=== PATIENT | male | born 1950 | race Caucasian/White ===

== ENCOUNTER 2017-06-13 02:26 | Emergency (ER) | payer MEDICARE, OTHER ==
[~2017-06-13] VITALS: Ht 193 cm; Wt 111.0 kg
[2017-06-13] VITALS (7 sets, daily range): BP systolic 155–201; BP diastolic 89–114; PULSE 83–103; RESP 16–20; TEMP 99; O2SAT 94–97
[~2017-06-13 02:26] MED LIST: BACT800T5 PO; IBUP800T23 PO; METR-1 PO; TRAM50TA PO
[2017-06-13 03:46] LABS: BLOOD, URINE NEG (NEG); GLUCOSE,URINE 1000 OR GREATER mg/dL (NEG); KETONE, URINE NEG (NEG); NITRITE,URINE NEG (NEG)
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
[2017-06-13] MEDS ORDERED: SODIUM CHLORIDE 0.9% FLUSH 10 ML FLUSH IV FLUSH PRN (04:00)
[2017-06-13] MEDS ORDERED: ONDANSETRON HCL 4 MG/2 ML VIAL IVP ONE (04:00)
[2017-06-13 04:09] LABS: SQUAMOUS EPITHELIAL CELL URINE 0-5 /hpf (0-5); URINE COLOR YELLOW (YELLW/STRAW)
[2017-06-13 04:10] LABS: COMMENT (UR) CULT NOT INDICATED; CULTURE IF INDICATED CULT NOT INDICATED
[2017-06-13 04:11] LABS: RBC, URINE 0-3 /hpf (0-3)
[2017-06-13 04:26] LABS: AUTOMATED NEUTROPHIL # 5.7 TH/MM3 (1.8-7.7); BASOPHIL # 0.1 TH/MM3 (0-0.2); BASOPHIL % 0.6 % (0.0-2.0); EOSINOPHIL # 0.7 TH/MM3 (0-0.4); HEMATOCRIT 49.3 % (39.0-51.0); HEMO FLAGS DIFF FINAL; LYMPH % 34.6 % (9.0-44.0); LYMPHOCYTE # 3.9 TH/MM3 (1.0-4.8); MEAN CELL VOLUME 81.1 FL (80.0-100.0); MEAN CORPUSCULAR HEMOGLOBIN 27.7 PG (27.0-34.0); MEAN CORPUSCULAR HGB CONC 34.1 % (32.0-36.0); MONO % 7.2 % (0.0-8.0); NEUT % 51.6 % (16.0-70.0); PLATELET COUNT 268 TH/MM3 (150-450); RED BLOOD COUNT 6.08 MIL/MM3 (4.50-5.90); RED CELL DISTRIBUTION WIDTH 12.4 % (11.6-17.2); WHITE BLOOD COUNT 11.2 TH/MM3 (4.0-11.0)
[2017-06-13] MEDS ORDERED: cloNIDine HCL 0.1 MG TAB PO ONE (04:30)
[2017-06-13] MEDS ORDERED: KETOROLAC TROMETHAMINE 30 MG/ML (IVP) VIAL IV PUSH ONE (04:30)
[2017-06-13 04:34] LABS: CHLORIDE 103 MEQ/L (98-107); POTASSIUM 4.7 MEQ/L (3.5-5.1); SODIUM (NA) 137 MEQ/L (136-145)
[2017-06-13 04:38] LABS: ANION GAP 7 MEQ/L (5-15); BICARBONATE 26.8 MEQ/L (21.0-32.0); BLOOD UREA NITROGEN 24 MG/DL (7-18)
[2017-06-13 04:41] LABS: ALT (GPT) 48 U/L (12-78); AST (GOT) 22 U/L (15-37); GLOMERULAR FILTRATION RATE 61 ML/MIN (>89)
[2017-06-13 04:42] LABS: TOTAL BILIRUBIN ADULT 0.3 MG/DL (0.2-1.0)
[2017-06-13 04:44] LABS: ALKALINE PHOSPHATASE 102 U/L (45-117)
--- NOTE | 2017-06-13 04:59 | RADRPT ---
EXAM DATE/TIME: 06/13/2017 03:51 [facility] COMPARISON: CHEST SINGLE AP, November 24, 2014, 3:51. INDICATIONS : Shortness of breath. MEDICAL HISTORY : Chronic obstructive pulmonary disease. Asthma. SURGICAL HISTORY : None. ENCOUNTER: Initial ACUITY: 1 day PAIN SCORE: 0/10 LOCATION: Bilateral chest FINDINGS: A single view of the chest demonstrates the lungs to be symmetrically aerated without evidence of mas s, infiltrate or effusion. The cardiomediastinal contours are unremarkable. Osseous structures are intact. CONCLUSION: 1. No active disease. Mild hyperinflation. Shady Benitez MD on June 13, 2017 at 4:57 Board Certified Radiologist. This report was verified electronically.
[2017-06-13] MEDS ORDERED: IOHEXOL 350 MG/ML 10 ML VIAL (for RAD DIAG) IVCONTRAST ONE (06:00)
--- NOTE | 2017-06-13 06:44 | RADRPT ---
EXAM DATE/TIME: 06/13/2017 06:03 [facility] COMPARISON: No previous studies available for comparison. INDICATIONS : Bilateral abdominal pain anterior and posterior. IV CONTRAST: 100 cc Omnipaque 350 (iohexol) IV ORAL CONTRAST: No oral contrast ingested. RADIATION DOSE: 20.55 CTDIvol (mGy) MEDICAL HISTORY : Chronic obstructive pulmonary disease. SURGICAL HISTORY : None. ENCOUNTER: Initial ACUITY: 2 weeks PAIN SCALE: 2/10 LOCATION: Bilateral abdomen. Anterior and posterior. TECHNIQUE: Volumetric scanning of the abdomen and pelvis was performed. Using automated exposure control and ad justment of the mA and/or kV according to patient size, radiation dose was kept as low as reasonably achievable to obtain optimal diagnostic quality images. DICOM format image data is available electro nically for review and comparison. FINDINGS: Lung bases are clear. Diffuse fatty infiltration of the liver noted. Spleen, adrenals, kidneys and pa ncreas demonstrate no acute findings. No gallstones or biliary ductal dilatation. No free fluid or free air. No bowel obstruction. No adenopathy. CONCLUSION: 1. No acute findings on abdomen and pelvic CT. Diffuse fatty liver. Shady Benitez MD on June 13, 2017 at 6:41 Board Certified Radiologist. This report was verified electronically.
[2017-06-13] MEDS ORDERED: AMLO5 PO (06:50)
[2017-06-13] MEDS ORDERED: METF500T PO (06:50)
[2017-06-13] MEDS ORDERED: CLON0.1T PO (06:50)
--- NOTE | 2017-06-13 07:46 | EKG ---
Date Performed: 06/13/2017 Time Performed: 04:05:08 PTAGE: 66 years EKG: Sinus rhythm POSSIBLE INFERIOR MYOCARDIAL INFARCTION LEFT AXIS DEVIATION BORDERLINE POOR R WAVE PROGRESSION ABNOR MAL ECG PREVIOUS TRACING : 11/24/2014 03.45 No significant change from previous tracing noted. DOCTOR: Vladimir Paez Interpretating Date/Time 06/13/2017 07:43:59
== END 2017-06-13 07:09 | disposition home or self-care (01) ==
LOC: PHED 02:26
DX: I10 Essential (primary) hypertension (principal); R73.9 Hyperglycemia, unspecified; J44.9 Chronic obstructive pulmonary disease, unspecified; Z87.891 Personal history of nicotine dependence
CPT/HCPCS: 71010; 74177; 80053; 81001; 85025; 93005; 96374; 96375; 99285; J1885; J2405; Q9967

== ENCOUNTER 2017-10-18 11:24 | Inpatient (IN) | payer MEDICARE, OTHER ==
[~2017-10-18] VITALS: Ht 195.6 cm; Wt 108.6 kg
[2017-10-18] VITALS (10 sets, daily range): BP systolic 147–234; BP diastolic 93–153; PULSE 82–106; RESP 14–20; TEMP 96.1–99.1; O2SAT 93–100
[~2017-10-18 11:24] MED LIST changes: +AMLO5 PO; -BACT800T5 PO; +CLON0.1T PO; -IBUP800T23 PO; +METF500T PO; -METR-1 PO; -TRAM50TA PO
[2017-10-18 12:23] LABS: BILIRUBIN, URINE NEG (NEG); BLOOD, URINE SMALL (NEG); GLUCOSE,URINE 500 mg/dL (NEG); KETONE, URINE NEG (NEG); NITRITE,URINE NEG (NEG); URINE LEUKOCYTE ESTERASE NEG (NEG)
[2017-10-18 12:24] LABS: URINE COLOR STRAW (YELLW/STRAW)
[2017-10-18 12:26] LABS: SQUAMOUS EPITHELIAL CELL URINE 0-5 /hpf (0-5); WBC, URINE 0-2 /hpf (0-5)
[2017-10-18] MEDS ORDERED: METOPROLOL TARTRATE 25 MG TAB PO ONE (12:30)
[2017-10-18] MEDS ORDERED: SODIUM CHLORIDE 0.9% FLUSH 10 ML FLUSH IV FLUSH PRN ×2 (12:30→14:15)
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
[2017-10-18 12:49] LABS: AUTOMATED NEUTROPHIL # 8.7 TH/MM3 (1.8-7.7); BASOPHIL # 0.5 TH/MM3 (0-0.2); BASOPHIL % 3.9 % (0.0-2.0); EOSINOPHIL # 0.2 TH/MM3 (0-0.4); EOSINOPHIL % 1.1 % (0.0-4.0); HEMATOCRIT 45.2 % (39.0-51.0); HEMOGLOBIN 15.1 GM/DL (13.0-17.0); LYMPH % 22.5 % (9.0-44.0); LYMPHOCYTE # 3.1 TH/MM3 (1.0-4.8); MEAN CELL VOLUME 82.2 FL (80.0-100.0); MEAN CORPUSCULAR HEMOGLOBIN 27.5 PG (27.0-34.0); MEAN CORPUSCULAR HGB CONC 33.5 % (32.0-36.0); MEAN PLATELET VOLUME 6.9 FL (7.0-11.0); MONO % 9.2 % (0.0-8.0); MONOCYTE # 1.3 TH/MM3 (0-0.9); NEUT % 63.3 % (16.0-70.0); PLATELET COUNT 323 TH/MM3 (150-450); RED CELL DISTRIBUTION WIDTH 11.9 % (11.6-17.2); WHITE BLOOD COUNT 13.8 TH/MM3 (4.0-11.0)
[2017-10-18 12:59] LABS: CHLORIDE 105 MEQ/L (98-107); SODIUM (NA) 138 MEQ/L (136-145)
[2017-10-18 13:03] LABS: ALBUMIN 3.3 GM/DL (3.4-5.0); BICARBONATE 22.9 MEQ/L (21.0-32.0); BLOOD UREA NITROGEN 47 MG/DL (7-18); CALCIUM 8.9 MG/DL (8.5-10.1); GLUCOSE,RANDOM 270 MG/DL (74-106); LIPASE 258 U/L (73-393)
[2017-10-18 13:06] LABS: ALT (GPT) 43 U/L (12-78); AST (GOT) 28 U/L (15-37); GLOMERULAR FILTRATION RATE 17 ML/MIN (>89)
[2017-10-18 13:08] LABS: TOTAL BILIRUBIN ADULT 0.4 MG/DL (0.2-1.0); TOTAL PROTEIN 8.1 GM/DL (6.4-8.2)
[2017-10-18 13:09] LABS: ALKALINE PHOSPHATASE 86 U/L (45-117)
[2017-10-18 13:11] LABS: TROPONIN I 0.02 NG/ML (0.02-0.05)
--- NOTE | 2017-10-18 13:37 | RADRPT ---
EXAM DATE/TIME: 10/18/2017 12:30 [facility] COMPARISON: No previous studies available for comparison. INDICATIONS : Abdominal pain and problems urinating for 3 months. MEDICAL HISTORY : Chronic obstructive pulmonary disease. SURGICAL HISTORY : None. ENCOUNTER: Initial ACUITY: 3 months PAIN SCORE: 10/10 LOCATION: abdominal FINDINGS: Lung base is are clear. Bowel gas pattern unremarkable. No free air or obstruction. Degenerative c hanges lower lumbar spine. CONCLUSION: Degenerative changes lower lumbar spine otherwise negative. Fly Stockton MD FACR on October 18, 2017 at 13:35 Board Certified Radiologist. This report was verified electronically.
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
[2017-10-18] MEDS ORDERED: GLUCAGON 1 MG/ML VIAL OTHER PRN (14:15)
[2017-10-18] MEDS ORDERED: ONDANSETRON HCL 4 MG/2 ML VIAL IVP PRN (14:15)
[2017-10-18] MEDS ORDERED: ACETAMINOPHEN 325 MG TAB PO PRN (14:15)
[2017-10-18] MEDS ORDERED: NALOXONE HCL 0.4 MG/ML AMP IV PUSH PRN (14:15)
[2017-10-18] MEDS ORDERED: TEMAZEPAM 15 MG CAP PO PRN (14:15)
[2017-10-18] MEDS ORDERED: LACTULOSE SYRUP 20 GM/30 ML CUP PO PRN (14:15)
[2017-10-18] MEDS ORDERED: SENNOSIDES 8.6 MG TAB PO PRN (14:15)
[2017-10-18] MEDS ORDERED: DEXTROSE 50% IN WATER 50 ML VIAL(D50) IV PUSH PRN (14:15)
[2017-10-18] MEDS ORDERED: PROCHLORPERAZINE 25 MG SUPP RECTAL PRN (14:15)
[2017-10-18] MEDS ORDERED: BISACODYL 10 MG SUPP RECTAL PRN (14:15)
[2017-10-18] MEDS ORDERED: MAGNESIUM HYDROXIDE SUSP 30 ML CUP PO PRN (14:15)
[2017-10-18] MEDS ORDERED: TAMSULOSIN HCL 0.4 MG CAP PO ONE (14:30)
[2017-10-18] MEDS: hydrALAZINE HCL 10 MG TAB PO PRN ×2 (14:37→20:44)
[2017-10-18] MEDS: ENOXAPARIN SODIUM 30 MG/0.3 ML SYRINGE SQ SCH (14:37)
[2017-10-18] MEDS: SODIUM CHLOR 0.9% 1000 ML INJ 1,000 ML IV SCH (14:37)
--- NOTE | 2017-10-18 17:29 | EKG ---
Date Performed: 10/18/2017 Time Performed: 12:56:14 PTAGE: 67 years EKG: SINUS TACHYCARDIA POSSIBLE LEFT ATRIAL ENLARGEMENT INFERIOR MYOCARDIAL INFARCTION ABNORMAL ECG Compared to PREVIOUS TRACING , the patient is now tachycardic. PREVIOUS TRACIN06/13/2017 04.05 DOCTOR: Natali Howard Interpretating Date/Time 10/18/2017 17:28:10
[2017-10-18] MEDS: INSULIN ASPART SUPPLEMENTAL SCALE SQ SCH ×2 (17:45→21:45)
[2017-10-18] MEDS: METOPROLOL TARTRATE 50 MG TAB PO SCH (20:44)
[2017-10-18] MEDS: DOCUSATE SODIUM 50 MG/SENNA 8.6 MG TAB PO SCH (20:44)
[2017-10-18] MEDS: METOPROLOL TARTRATE 5 MG/5 ML VIAL IV PUSH PRN (20:45)
[2017-10-18] MEDS: SODIUM CHLORIDE 0.9% FLUSH 10 ML FLUSH IV FLUSH SCH (20:45)
[2017-10-19] VITALS (10 sets, daily range): BP systolic 150–198; BP diastolic 78–114; PULSE 77–124; RESP 18–20; TEMP 97.7–99; O2SAT 92–96
[2017-10-19] MEDS: SODIUM CHLOR 0.9% 1000 ML INJ 1,000 ML IV SCH ×3 (01:26→20:44)
[2017-10-19] MEDS: hydrALAZINE HCL 10 MG TAB PO PRN ×3 (04:33→20:44)
[2017-10-19 06:20] LABS: CHLORIDE 107 MEQ/L (98-107); SODIUM (NA) 143 MEQ/L (136-145)
[2017-10-19 06:25] LABS: ALBUMIN 2.8 GM/DL (3.4-5.0)
[2017-10-19 06:26] LABS: BICARBONATE 28.6 MEQ/L (21.0-32.0); CALCIUM 8.3 MG/DL (8.5-10.1); GLUCOSE,RANDOM 171 MG/DL (74-106)
[2017-10-19 06:41] LABS: ALKALINE PHOSPHATASE 70 U/L (45-117); ALT (GPT) 45 U/L (12-78); AST (GOT) 25 U/L (15-37); BLOOD UREA NITROGEN 34 MG/DL (7-18); GLOMERULAR FILTRATION RATE 32 ML/MIN (>89); TOTAL BILIRUBIN ADULT 0.4 MG/DL (0.2-1.0)
[2017-10-19] MEDS: METOPROLOL TARTRATE 50 MG TAB PO SCH ×2 (08:42→20:44)
[2017-10-19] MEDS: DOCUSATE SODIUM 50 MG/SENNA 8.6 MG TAB PO SCH ×2 (08:42→20:44)
[2017-10-19] MEDS: INSULIN ASPART SUPPLEMENTAL SCALE SQ SCH ×4 (08:42→20:53)
[2017-10-19] MEDS: amLODIPine BESYLATE 5 MG TAB PO SCH (08:43)
[2017-10-19] MEDS: TAMSULOSIN HCL 0.4 MG CAP PO SCH (08:43)
[2017-10-19] MEDS: SODIUM CHLORIDE 0.9% FLUSH 10 ML FLUSH IV FLUSH SCH ×2 (08:46→20:44)
--- NOTE | 2017-10-19 08:53 | HHI.PR ---
Subjective Remarks Feels improving. No chest pain or sob. Urine is orange in color, no blood in it. Abd pain is controlled. No n/v/d/c. Objective Vitals Vital Signs Date Time Temp Pulse Resp B/P (MAP) Pulse Ox O2 Delivery O2 Flow Rate FiO2 10/19/17 08:00 99.0 124 20 182/78 (112) 95 10/19/17 04:00 97.7 81 20 156/104 (121) 94 Automatic Cuff 10/19/17 00:00 97.7 77 20 158/101 (120) 94 Manual Cuff/Auscultation 10/18/17 20:00 97.6 95 20 180/110 (133) 94 Automatic Cuff 10/18/17 19:15 94 21 10/18/17 18:00 96.1 105 14 147/93 (111) 93 10/18/17 15:59 10/18/17 15:34 82 20 183/100 (127) 94 10/18/17 15:02 95 21 10/18/17 14:35 85 16 193/112 (139) 100 10/18/17 14:12 88 20 203/122 (149) 98 10/18/17 13:23 94 18 224/124 (157) 94 10/18/17 12:47 88 18 234/153 (180) 96 10/18/17 12:47 98 10/18/17 11:39 99.1 106 16 229/130 (163) 96 I/O 10/18/17 10/18/17 10/18/17 10/19/17 10/19/17 10/19/17 07:00 15:00 23:00 07:00 15:00 23:00 Intake Total 880 ml 3504 ml Output Total 2500 ml 3200 ml 3050 ml Balance -2500 ml -2320 ml 454 ml Intake Oral 880 ml 1920 ml IV Total 1584 ml Output Urine Total 2500 ml 3200 ml 3050 ml # Bowel Movements 0 Result Diagram: 10/18/17 1240 10/19/17 0435 Imaging Last Impressions Abdomen X-Ray 10/18/17 0000 Signed Impressions: Service Date/Time: Wednesday, October 18, 2017 12:30 - CONCLUSION: Degenerative changes lower lumbar spine otherwise negative. Fly Stockton MD FACR Objective Remarks GENERAL: This is a well-nourished, well-developed patient, in no apparent distress. CARDIOVASCULAR: Regular rate and rhythm without murmurs, gallops, or rubs. RESPIRATORY: Clear to auscultation. Breath sounds equal bilaterally. No wheezes , rales, or rhonchi. GASTROINTESTINAL: Abdomen soft, non-tender, nondistended. No hepato-splenomegaly , or palpable masses. No guarding. MUSCULOSKELETAL: Extremities without clubbing, cyanosis, or edema. No joint tenderness, effusion, or edema noted. No calf tenderness. Negative Homans sign bilaterally. NEUROLOGICAL: Awake and alert. Cranial nerves II through XII intact. Motor and sensory grossly within normal limits. Five out of 5 muscle strength in all muscle groups. Normal speech. A/P Assessment and Plan Hypertension Diabetes mellitus Urinary retention RODOLFO Dehydration Hematuria Hypertension emergency Noncompliance with medications and follow-up Give one dose of IV labetalol in the emergency room Start metoprolol 50 mg twice a day, Start gentle IV fluids monitor kidney function. Kidney function improving. Continue Hall for now monitor urine output. Avoid nephrotoxins. Start Flomax Start amlodipine 5 mg by mouth daily Hydralazine when necessary 10 mg need for systolic blood pressure more than 160 Monitor closely vital signs Insulin sliding scale, Accu-Cheks A1c pending Laxatives, antiemetics as need Consult urology DVT prophylaxis SCD/teds/Lovenox per renal dose Discussed Condition With Patient, nurse DC when improves kidney function at baseline Azalia Burgess MD Oct 19, 2017 08:53
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
[2017-10-19] MEDS ORDERED: INFLUENZA VIRUS VACCINE (QUADRIVALENT) 0.5 ML SYR IM ONE (10:00)
[2017-10-19] MEDS ORDERED: PNEUMOCOCCAL POLYVALENT INJ 25 MCG/0.5 ML SYR IM ONE (10:00)
[2017-10-19] MEDS: ENOXAPARIN SODIUM 30 MG/0.3 ML SYRINGE SQ SCH (14:28)
[2017-10-19] MEDS: METOPROLOL TARTRATE 5 MG/5 ML VIAL IV PUSH PRN (17:17)
[2017-10-20] VITALS (9 sets, daily range): BP systolic 146–180; BP diastolic 88–101; PULSE 77–100; RESP 18–20; TEMP 97.5–98.5; O2SAT 92–95
[2017-10-20] MEDS: hydrALAZINE HCL 10 MG TAB PO PRN (02:48)
[2017-10-20 05:35] LABS: AUTOMATED NEUTROPHIL # 9.3 TH/MM3 (1.8-7.7); BASOPHIL # 0.1 TH/MM3 (0-0.2); BASOPHIL % 0.4 % (0.0-2.0); EOSINOPHIL # 0.6 TH/MM3 (0-0.4); EOSINOPHIL % 4.6 % (0.0-4.0); HEMATOCRIT 45.2 % (39.0-51.0); HEMOGLOBIN 14.6 GM/DL (13.0-17.0); LYMPH % 18.8 % (9.0-44.0); LYMPHOCYTE # 2.5 TH/MM3 (1.0-4.8); MEAN CELL VOLUME 82.9 FL (80.0-100.0); MEAN CORPUSCULAR HEMOGLOBIN 26.8 PG (27.0-34.0); MEAN CORPUSCULAR HGB CONC 32.3 % (32.0-36.0); MEAN PLATELET VOLUME 7.7 FL (7.0-11.0); MONO % 6.3 % (0.0-8.0); MONOCYTE # 0.8 TH/MM3 (0-0.9); NEUT % 69.9 % (16.0-70.0); PLATELET COUNT 327 TH/MM3 (150-450); RED BLOOD COUNT 5.45 MIL/MM3 (4.50-5.90); RED CELL DISTRIBUTION WIDTH 12.3 % (11.6-17.2); WHITE BLOOD COUNT 13.3 TH/MM3 (4.0-11.0)
[2017-10-20 05:53] LABS: CALCIUM 7.9 MG/DL (8.5-10.1)
[2017-10-20 05:54] LABS: BICARBONATE 28.2 MEQ/L (21.0-32.0)
[2017-10-20] MEDS: SODIUM CHLOR 0.9% 1000 ML INJ 1,000 ML IV SCH ×2 (05:54→15:46)
[2017-10-20 05:57] LABS: CREATININE 1.5 MG/DL (0.60-1.30)
[2017-10-20] MEDS: INSULIN ASPART SUPPLEMENTAL SCALE SQ SCH ×4 (08:13→20:11)
[2017-10-20] MEDS: METOPROLOL TARTRATE 50 MG TAB PO SCH ×2 (08:13→20:11)
[2017-10-20] MEDS: amLODIPine BESYLATE 5 MG TAB PO SCH (08:13)
[2017-10-20] MEDS: DOCUSATE SODIUM 50 MG/SENNA 8.6 MG TAB PO SCH ×2 (08:13→20:11)
[2017-10-20] MEDS: TAMSULOSIN HCL 0.4 MG CAP PO SCH (08:13)
[2017-10-20] MEDS: SODIUM CHLORIDE 0.9% FLUSH 10 ML FLUSH IV FLUSH SCH ×3 (08:14→20:16)
--- NOTE | 2017-10-20 08:17 | HHI.PR ---
Subjective Remarks In the chair, no n/v/d/c. Denies chest pain or sob. Feels tired. Hall with pinkish urine. no abd pain . no fever ro chills. Objective Vitals Vital Signs Date Time Temp Pulse Resp B/P (MAP) Pulse Ox O2 Delivery O2 Flow Rate FiO2 10/20/17 08:02 95 21 10/20/17 04:17 89 146/96 (113) 10/20/17 02:45 88 170/101 (124) 10/20/17 00:00 98.0 78 18 169/89 (115) 93 10/19/17 20:00 97.7 84 19 175/95 (121) 92 10/19/17 19:54 93 21 10/19/17 18:00 97.8 85 20 150/92 (111) 95 10/19/17 17:14 94 198/114 (142) 10/19/17 16:00 98.5 88 18 175/87 (116) 94 10/19/17 12:00 98.7 79 20 174/88 (116) 94 10/19/17 11:24 96 I/O 10/19/17 10/19/17 10/19/17 10/20/17 10/20/17 10/20/17 07:00 15:00 23:00 07:00 15:00 23:00 Intake Total 3504 ml 318 ml 1459 ml 1112 ml Output Total 3050 ml 1000 ml 3800 ml Balance 454 ml 318 ml 459 ml -2688 ml Intake Oral 1920 ml 750 ml IV Total 1584 ml 318 ml 709 ml 1112 ml Output Urine Total 3050 ml 1000 ml 3800 ml # Bowel Movements 0 Result Diagram: 10/20/17 0425 10/20/17 0425 Objective Remarks GENERAL: This is a well-nourished, well-developed patient, in no apparent distress. CARDIOVASCULAR: Regular rate and rhythm without murmurs, gallops, or rubs. RESPIRATORY: Clear to auscultation. Breath sounds equal bilaterally. No wheezes , rales, or rhonchi. GASTROINTESTINAL: Abdomen soft, non-tender, nondistended. No hepato-splenomegaly , or palpable masses. No guarding. MUSCULOSKELETAL: Extremities without clubbing, cyanosis, or edema. No joint tenderness, effusion, or edema noted. No calf tenderness. Negative Homans sign bilaterally. NEUROLOGICAL: Awake and alert. Cranial nerves II through XII intact. Motor and sensory grossly within normal limits. Five out of 5 muscle strength in all muscle groups. Normal speech. A/P Assessment and Plan Hypertension Diabetes mellitus Urinary retention RODOLFO Dehydration Hematuria Hypertension emergency Noncompliance with medications and follow-up Give one dose of IV labetalol in the emergency room Start metoprolol 50 mg twice a day, Start gentle IV fluids monitor kidney function. Kidney function improving. Continue Hall for now monitor urine output. Avoid nephrotoxins. Start Flomax Start amlodipine 5 mg by mouth daily Hydralazine when necessary 10 mg need for systolic blood pressure more than 160 Monitor closely vital signs Insulin sliding scale, Accu-Cheks A1c pending Laxatives, antiemetics as need Consult urology DVT prophylaxis SCD/teds/Lovenox per renal dose Discussed Condition With Patient, nurse DC when improves kidney function at baseline Azalia Burgess MD Oct 20, 2017 08:17
[2017-10-20] MEDS: ENOXAPARIN SODIUM 30 MG/0.3 ML SYRINGE SQ SCH (15:45)
[2017-10-21] VITALS: BP 175/95; PULSE 80; RESP 18; TEMP 97.6; O2SAT 95
[2017-10-21] MEDS: hydrALAZINE HCL 10 MG TAB PO PRN (01:10)
[2017-10-21] MEDS: SODIUM CHLOR 0.9% 1000 ML INJ 1,000 ML IV SCH ×2 (01:11→11:15)
[2017-10-21 04:00] VITALS: BP 184/97
[2017-10-21] MEDS: METOPROLOL TARTRATE 5 MG/5 ML VIAL IV PUSH PRN (05:21)
[2017-10-21 08:00] VITALS: BP 186/92; PULSE 93; RESP 20; TEMP 97.8; O2SAT 94
[2017-10-21] MEDS: INSULIN ASPART SUPPLEMENTAL SCALE SQ SCH ×2 (08:36→13:15)
[2017-10-21] MEDS: METOPROLOL TARTRATE 50 MG TAB PO SCH (08:38)
[2017-10-21] MEDS: amLODIPine BESYLATE 5 MG TAB PO SCH (08:38)
[2017-10-21] MEDS: DOCUSATE SODIUM 50 MG/SENNA 8.6 MG TAB PO SCH (08:38)
[2017-10-21] MEDS: TAMSULOSIN HCL 0.4 MG CAP PO SCH (08:38)
[2017-10-21] MEDS: SODIUM CHLORIDE 0.9% FLUSH 10 ML FLUSH IV FLUSH SCH (08:39)
[2017-10-21 09:32] LABS: AUTOMATED NEUTROPHIL # 9.5 TH/MM3 (1.8-7.7); BASOPHIL # 0.1 TH/MM3 (0-0.2); BASOPHIL % 0.6 % (0.0-2.0); EOSINOPHIL # 0.8 TH/MM3 (0-0.4); EOSINOPHIL % 5.8 % (0.0-4.0); HEMATOCRIT 45.2 % (39.0-51.0); HEMOGLOBIN 14.7 GM/DL (13.0-17.0); LYMPH % 19.3 % (9.0-44.0); LYMPHOCYTE # 2.7 TH/MM3 (1.0-4.8); MEAN CELL VOLUME 81.9 FL (80.0-100.0); MEAN CORPUSCULAR HEMOGLOBIN 26.6 PG (27.0-34.0); MEAN CORPUSCULAR HGB CONC 32.4 % (32.0-36.0); MEAN PLATELET VOLUME 7.5 FL (7.0-11.0); MONO % 6.6 % (0.0-8.0); MONOCYTE # 0.9 TH/MM3 (0-0.9); NEUT % 67.7 % (16.0-70.0); PLATELET COUNT 374 TH/MM3 (150-450); RED BLOOD COUNT 5.52 MIL/MM3 (4.50-5.90); RED CELL DISTRIBUTION WIDTH 12.1 % (11.6-17.2)
[2017-10-21 09:56] LABS: CALCIUM 8.4 MG/DL (8.5-10.1)
[2017-10-21 09:57] LABS: BICARBONATE 28.8 MEQ/L (21.0-32.0); GLUCOSE,RANDOM 274 MG/DL (74-106)
[2017-10-21 10:01] LABS: GLOMERULAR FILTRATION RATE 51 ML/MIN (>89)
[2017-10-21 10:03] LABS: CHLORIDE 104 MEQ/L (98-107); SODIUM (NA) 140 MEQ/L (136-145)
[2017-10-21 10:05] LABS: BLOOD UREA NITROGEN 19 MG/DL (7-18)
--- NOTE | 2017-10-21 10:06 | HHI.PR ---
Subjective Remarks Feels better urine is clearing up. no fever or chills.No n/v/d/c. no abd pain. Wants to go home Objective Vitals Vital Signs Date Time Temp Pulse Resp B/P (MAP) Pulse Ox O2 Delivery O2 Flow Rate FiO2 10/21/17 08:00 94 21 10/21/17 08:00 97.8 93 20 186/92 (123) 94 10/21/17 04:00 184/97 (126) 10/21/17 00:00 97.6 80 18 175/95 (121) 95 10/20/17 22:45 95 21 10/20/17 20:00 97.5 100 20 180/89 (119) 92 10/20/17 15:50 97.7 91 20 150/88 (108) 93 10/20/17 11:30 98.5 77 20 159/89 (112) 93 I/O 10/20/17 10/20/17 10/20/17 10/21/17 10/21/17 10/21/17 07:00 15:00 23:00 07:00 15:00 23:00 Intake Total 1112 ml 1000 ml 1776 ml Output Total 3800 ml 2300 ml 2400 ml Balance -2688 ml -1300 ml -624 ml Intake Oral 800 ml 860 ml IV Total 1112 ml 200 ml 916 ml Output Urine Total 3800 ml 2300 ml 2400 ml # Bowel Movements 0 0 Result Diagram: 10/21/17 0915 10/21/17 0915 Imaging Last Impressions Chest X-Ray 10/21/17 0000 Signed Impressions: Service Date/Time: Saturday, October 21, 2017 10:49 - CONCLUSION: 1. No acute abnormality or significant interval change. Marbin Mcgraw MD Abdomen X-Ray 10/18/17 0000 Signed Impressions: Service Date/Time: Wednesday, October 18, 2017 12:30 - CONCLUSION: Degenerative changes lower lumbar spine otherwise negative. Fly Stockton MD FACR Objective Remarks GENERAL: This is a well-nourished, well-developed patient, in no apparent distress. CARDIOVASCULAR: Regular rate and rhythm without murmurs, gallops, or rubs. RESPIRATORY: Clear to auscultation. Breath sounds equal bilaterally. No wheezes , rales, or rhonchi. GASTROINTESTINAL: Abdomen soft, non-tender, nondistended. No hepato-splenomegaly , or palpable masses. No guarding. MUSCULOSKELETAL: Extremities without clubbing, cyanosis, or edema. No joint tenderness, effusion, or edema noted. No calf tenderness. Negative Homans sign bilaterally. NEUROLOGICAL: Awake and alert. Cranial nerves II through XII intact. Motor and sensory grossly within normal limits. Five out of 5 muscle strength in all muscle groups. Normal speech. A/P Assessment and Plan Hypertension Diabetes mellitus type 2 Urinary retention RODOLFO Dehydration Hematuria Hypertension emergency Noncompliance with medications and follow-up. Advice compliance Give one dose of IV labetalol in the emergency room Start metoprolol 50 mg twice a day, Start gentle IV fluids monitor kidney function. Kidney function improving. Continue [place] for now monitor urine output. Avoid nephrotoxins. Start Flomax Start amlodipine 5 mg by mouth daily Hydralazine when necessary 10 mg need for systolic blood pressure more than 160 Monitor closely vital signs Insulin sliding scale, Accu-Cheks A1c pending Laxatives, antiemetics as need Consult urology DVT prophylaxis SCD/teds/Lovenox per renal dose Discussed Condition With Patient, nurse DC when improves kidney function at baseline Pill repeat BMP later today and if continues to improve will DC patient home with dover . Nurse to educate regarding dover care Azalia Burgess MD Oct 21, 2017 10:06
--- NOTE | 2017-10-21 11:00 | RADRPT ---
EXAM DATE/TIME: 10/21/2017 10:49 [facility] COMPARISON: CHEST SINGLE AP, June 13, 2017, 3:51. INDICATIONS : Short of breath MEDICAL HISTORY : Chronic obstructive pulmonary disease. SURGICAL HISTORY : None. ENCOUNTER: Initial ACUITY: 4 - 6 days PAIN SCORE: 0/10 LOCATION: Bilateral chest FINDINGS: Mild hyperinflation with mild diffuse increased interstitial prominence. Cardiomediastinal contours a re stable. Bony thorax is intact CONCLUSION: 1. No acute abnormality or significant interval change. Marbin Mcgraw MD on October 21, 2017 at 10:58 Board Certified Radiologist. This report was verified electronically.
[2017-10-21 12:00] VITALS: BP 140/65; PULSE 89; RESP 20; TEMP 97.4; O2SAT 94
[2017-10-21 12:40] LABS: CALCIUM 8.5 MG/DL (8.5-10.1)
[2017-10-21 12:41] LABS: BICARBONATE 28.7 MEQ/L (21.0-32.0)
[2017-10-21 12:44] LABS: CREATININE 1.3 MG/DL (0.60-1.30)
[2017-10-21] MEDS ORDERED: AMLO5 PO (12:46)
[2017-10-21] MEDS ORDERED: METO-309 PO ×2 (12:46→12:51)
[2017-10-21] MEDS ORDERED: PERI PO (12:46)
[2017-10-21] MEDS ORDERED: TAMS5CAP PO (12:46)
--- NOTE | 2017-10-21 12:50 | HHI.DS ---
Discharge Summary Admission Date Oct 18, 2017 at 14:05 Discharge Date: Oct 21, 2017 Admitting Diagnosis hypertensive urgency/acute renal failure/urinary outflow obstruction (1) COPD (chronic obstructive pulmonary disease) ICD Code: J44.9 - COPD (chronic obstructive pulmonary disease) Status: Acute (2) Acute renal failure ICD Code: N17.9 - Acute kidney failure, unspecified Status: Acute (3) Urinary outflow obstruction ICD Code: N13.9 - Obstructive and reflux uropathy, unspecified Status: Acute (4) Hypertensive urgency ICD Code: I16.0 - Hypertensive urgency Status: Acute Procedures None Brief History - From Admission 67-year-old male with history of hypertension, diabetes mellitus diagnosed in May 2017 and noncompliant with medications came to the emergency room with complaints of difficulty urinating, some suprapubic pain, urinary urgency, feeling tired. Is also having increased abdominal bloating, feels constipated had small hard amount of stool last time was yesterday. He denies any vomiting however he has some nausea, no fever or chills no chest pain, no shortness of breath. No lightheadedness,, headaches, palpitations. No motor deficit. This found with acute renal failure, urinary retention, and hypertension emergency. CBC/BMP: 10/21/17 0915 10/21/17 1225 Significant Findings Laboratory Tests Test 10/19/17 04:35 10/20/17 04:25 10/21/17 09:15 10/21/17 12:25 Blood Urea Nitrogen 34 MG/DL (7-18) 26 MG/DL (7-18) 19 MG/DL (7-18) 21 MG/DL (7-18) Creatinine 2.10 MG/DL (0.60-1.30) 1.50 MG/DL (0.60-1.30) 1.40 MG/DL (0.60-1.30) Random Glucose 171 MG/DL (74-106) 254 MG/DL (74-106) 274 MG/DL (74-106) 197 MG/DL (74-106) Albumin 2.8 GM/DL (3.4-5.0) Calcium Level 8.3 MG/DL (8.5-10.1) 7.9 MG/DL (8.5-10.1) 8.4 MG/DL (8.5-10.1) Estimat Glomerular Filtration Rate 32 ML/MIN (>89) 47 ML/MIN (>89) 51 ML/MIN (>89) 55 ML/MIN (>89) White Blood Count 13.3 TH/MM3 (4.0-11.0) 14.0 TH/MM3 (4.0-11.0) Mean Corpuscular Hemoglobin 26.8 PG (27.0-34.0) 26.6 PG (27.0-34.0) Eosinophils (%) (Auto) 4.6 % (0.0-4.0) 5.8 % (0.0-4.0) Neutrophils # (Auto) 9.3 TH/MM3 (1.8-7.7) 9.5 TH/MM3 (1.8-7.7) Eosinophils # (Auto) 0.6 TH/MM3 (0-0.4) 0.8 TH/MM3 (0-0.4) Imaging Last Impressions Chest X-Ray 10/21/17 0000 Signed Impressions: Service Date/Time: Saturday, October 21, 2017 10:49 - CONCLUSION: 1. No acute abnormality or significant interval change. Marbin Mcgraw MD Abdomen X-Ray 10/18/17 0000 Signed Impressions: Service Date/Time: Wednesday, October 18, 2017 12:30 - CONCLUSION: Degenerative changes lower lumbar spine otherwise negative. Fly Stockton MD FACR PE at Discharge GENERAL: This is a well-nourished, well-developed patient, in no apparent distress. CARDIOVASCULAR: Regular rate and rhythm without murmurs, gallops, or rubs. RESPIRATORY: Clear to auscultation. Breath sounds equal bilaterally. No wheezes , rales, or rhonchi. GASTROINTESTINAL: Abdomen soft, non-tender, nondistended. No hepato-splenomegaly , or palpable masses. No guarding. MUSCULOSKELETAL: Extremities without clubbing, cyanosis, or edema. No joint tenderness, effusion, or edema noted. No calf tenderness. Negative Homans sign bilaterally. NEUROLOGICAL: Awake and alert. Cranial nerves II through XII intact. Motor and sensory grossly within normal limits. Five out of 5 muscle strength in all muscle groups. Normal speech. Hospital Course Hypertension Diabetes mellitus type 2 uncontrolled A1c of 10.8 Urinary retention RODOLFO. Creatinine improved almost to baseline at discharge. Dehydration Hematuria Hypertension emergency Noncompliance with medications and follow-up Give one dose of IV labetalol in the emergency room Start metoprolol 50 mg twice a day, Start gentle IV fluids monitor kidney function. Kidney function improving. Continue Hall for now monitor urine output. Avoid nephrotoxins. Start Flomax Start amlodipine 5 mg by mouth daily Hydralazine when necessary 10 mg need for systolic blood pressure more than 160 Monitor closely vital signs Insulin sliding scale, Accu-Cheks. Lantus at discharge follow-up with PCP and adjust medication accordingly. A1c 10.8 Laxatives, antiemetics as need Consult urology, appreciate recommendations. To help Hall at discharge, to have voiding trials as outpatient follow-up with urology in 1 week as outpatient. Pt Condition on Discharge: Stable Discharge Disposition: Discharge Home Discharge Time: > 30 minutes Discharge Instructions DIET: Follow Instructions for: Heart Healthy Diet, Diabetic Diet, Renal Failure Diet Activities you can perform: Regular-No Restrictions Follow up Referrals: PCP Follow-up - 3-5 Days Urology - 1 Week with Neri Mejia DO New Orders: BASIC METABOLIC PROF - 2-3 Days New Medications: Blood Glucose Monitoring W/Device (Glucocom Blood Glucose Mo W/Device) 1 Kit Kit KIT .ROUTE DIRECTED for Blood Sugar Management, #1 Glucocom Test Strips (Glucocom Test Strips) 1 Ana Ana EA .ROUTE DIRECTED for Blood Sugar Management, #1 Insulin Detemir Inj (Levemir Inj) 1,000 unit/ 10 ML Vial 10 UNITS SQ HS for Blood Sugar Management for 30 Days, VIAL 0 Refills Do not mix with any other Insulin. Insulin Syringe/U-100/31G X 5/16" 1 ml (Insulin Syringe/U-100/31G X 5/16" 1 ml) 31 Gauge X 5/16" Mis EA .ROUTE DIRECTED for Blood Sugar Management, #1 0 Refills Lancets (Lancets) 1 Mis Mis EA .ROUTE DIRECTED for Blood Sugar Management, #1 0 Refills Parenteral Therapy Supplies (Sharpsafety Sharps Contai) 1 Mis Mis EA .ROUTE DIRECTED, #1 0 Refills Amlodipine (Norvasc) 5 Mg Tab 5 MG PO DAILY for Blood Pressure Management, #30 TAB Metoprolol Tartrate (Lopressor) 50 Mg Tab 100 MG PO Q12HR for Blood Pressure Management, #60 TAB Sennosides-Docusate Sodium (Gnp Senna Plus 8.6-50 mg) 8.6 Mg-50 Mg Tab 1 TAB PO BID for Constipation, #60 TAB Tamsulosin (Flomax) 0.4 Mg Cap 0.4 MG PO DAILY for URINARY RETENTION , #30 CAP Azaila Burgess MD Oct 21, 2017 12:50
[2017-10-21] MEDS ORDERED: LANCETS1 MI1 (12:54)
[2017-10-21] MEDS ORDERED: LEVEMIR SQ (12:54)
[2017-10-21] MEDS ORDERED: BIOM30MI (12:54)
[2017-10-21] MEDS ORDERED: GLUCTES12 (12:54)
[2017-10-21] MEDS ORDERED: GLUCKIT15 (12:54)
[2017-10-21] MEDS ORDERED: INSU1MIS15 (12:54)
--- NOTE | 2017-10-21 13:03 | PQ ---
Physician Query Response Document PATIENT: VALENCIA ROCA : 1950 ADMIT DATE: 10/18/2017 2:05 PM DISCH DATE: RESPONDING PROVIDER #: [email or web address] QUERY TEXT: Symptom Underlying Cause Please document the underlying diagnosis causing the patient?s documented symptom(s) or whether those are insignificant or unable to be further specified. 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 [place] Flomax Query created by: Juanita Garrett on 10/21/2017 12:12 PM RESPONSE TEXT: Urinary retention 2/2 Likely BPH, start flomax, has dover. Patient had suprapubic pain, bladder scan with urinary retention, dover was placed with 2 L drain upon dover cath placement. Will have further work up as OP with urology. Will continue dover at DC and have trial voiding as OP , to follow up as OP with urology Electronically signed by: Azalia Burgess MD 10/21/2017 12:59 PM
[2017-10-21] MEDS ORDERED: hydrALAZINE HCL 10 MG TAB PO PRN (13:15)
[2017-10-21] MEDS ORDERED: METOPROLOL TARTRATE 50 MG TAB PO ONE (13:30)
[2017-10-21] MEDS: ENOXAPARIN SODIUM 30 MG/0.3 ML SYRINGE SQ SCH (15:17)
[2017-10-21 17:40] LABS: HEMOGLOBIN A1C 10.7 % (4.3-6.0)
[2017-10-21] MEDS ORDERED: METOPROLOL TARTRATE 100 MG TAB PO SCH (21:00)
== END 2017-10-21 16:32 | disposition home or self-care (01) | DRG 683 ==
LOC: PHED 11:24 → PHEDA 14:05 → PH3A 15:54
PROVIDERS: ADMIT Hospitalist; ATTEND Hospitalist
PROC: 0T9B70Z Drainage of Bladder with Drainage Device, Via Natural or Artificial Opening (ICD-10-PCS; principal; 2017-10-18)
DX: N17.9 Acute kidney failure, unspecified (principal); N13.8 Other obstructive and reflux uropathy; E11.65 Type 2 diabetes mellitus with hyperglycemia; J44.9 Chronic obstructive pulmonary disease, unspecified; I16.0 Hypertensive urgency; N40.1 Benign prostatic hyperplasia with lower urinary tract symptoms; R33.8 Other retention of urine; Z91.14 Patient's other noncompliance with medication regimen; I10 Essential (primary) hypertension; K59.00 Constipation, unspecified; E86.0 Dehydration; R31.9 Hematuria, unspecified; Z87.891 Personal history of nicotine dependence; Z23 Encounter for immunization
CPT/HCPCS: 51702; 71010; 74020; 80048; 80053; 81001; 82948; 83036; 83690; 84484; 85025; 90686; 90732; 93005; J1650; J1815; J7030; Q2038

== ENCOUNTER 2018-01-23 03:28 | Emergency (ER) | payer MEDICARE, OTHER ==
[~2018-01-23] VITALS: Ht 193 cm; Wt 108.8 kg
[~2018-01-23 03:28] MED LIST changes: +BIOM30MI; -CLON0.1T PO; +GLUCKIT15; +GLUCTES12; +INSU1MIS15; +LANCETS1 MI1; +LEVEMIR SQ; -METF500T PO; +PERI PO; +TAMS5CAP PO
[2018-01-23 03:32] VITALS: BP 172/103; PULSE 112; RESP 20; TEMP 98.5; O2SAT 94
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
[2018-01-23 04:20] VITALS: BP 169/76; PULSE 77; RESP 16; O2SAT 99
[2018-01-23 04:50] LABS: BILIRUBIN, URINE NEG (NEG); BLOOD, URINE LARGE (NEG); GLUCOSE,URINE 1000 OR GREATER mg/dL (NEG); KETONE, URINE NEG (NEG); NITRITE,URINE POS (NEG); PH, URINE 6.5 (5.0-8.5); URINE COLOR YELLOW (YELLW/STRAW); URINE LEUKOCYTE ESTERASE SMALL (NEG)
[2018-01-23 04:58] LABS: SQUAMOUS EPITHELIAL CELL URINE 0-5 /hpf (0-5); WBC, URINE 100-200 /hpf (0-5); WHITE BLOOD CELL CLUMPS MOD
[2018-01-23 04:59] LABS: AMORPHOUS SEDIMENT, URINE MOD; BACTERIA, URINE MOD /hpf
[2018-01-23] MEDS ORDERED: CIPR-9 PO (05:09)
[2018-01-23 05:15] VITALS: BP 163/77; PULSE 68; RESP 18; O2SAT 99
[2018-01-23] MEDS ORDERED: CIPROFLOXACIN 500 MG TAB PO ONE (05:15)
== END 2018-01-23 05:36 | disposition home or self-care (01) ==
LOC: PHED 03:28
DX: T83.098A Other mechanical complication of other urinary catheter, initial encounter (principal); B96.4 Proteus (mirabilis) (morganii) as the cause of diseases classified elsewhere; E11.9 Type 2 diabetes mellitus without complications; I10 Essential (primary) hypertension; J44.9 Chronic obstructive pulmonary disease, unspecified; N40.1 Benign prostatic hyperplasia with lower urinary tract symptoms; R33.9 Retention of urine, unspecified; M19.90 Unspecified osteoarthritis, unspecified site; Z87.891 Personal history of nicotine dependence
CPT/HCPCS: 81001; 87077; 87086; 87186; 99283; P9612